=== PATIENT | female | born 1940 | race African-American/Black ===

== ENCOUNTER 2022-02-25 12:35 | Emergency (ER) | payer OTHER ==
[2022-02-25 13:43] LABS: Absolute Lymphocytes (CBC) 1.1 K/uL (0.7-4.9); Hematocrit 37.7 % (36.0-45.0); MCV 89.4 fL (80-100); MPV 7.3 fL (7.6-11.3); RBC Red Blood Cell Count 4.21 M/uL (3.86-4.86)
[2022-02-25 13:52] LABS: Protime INR 1.07
[2022-02-25 14:04] LABS: Albumin 3.4 g/dL (3.4-5.0); Bilirubin Direct 0.2 mg/dL (0-0.2); Bilirubin Total 0.5 mg/dL (0.2-1.0); Potassium 3.9 mmol/L (3.5-5.1); Protein, Total 7.8 g/dL (6.4-8.2); Troponin High Sensitivity 10.3 pg/mL (<58.9)
--- NOTE | 2022-02-25 14:14 | RAD REPORT ---
EXAM DESCRIPTION: CT - Head Brain Wo Cont - 02/25/2022 2:03 pm CLINICAL HISTORY: Generalized weakness COMPARISON: <Comparisons> TECHNIQUE: Axial 5 mm thick images of the head were obtained without IV contrast. All CT scans are performed using dose optimization technique as appropriate and may include automated exposure control or mA/KV adjustment according to patient size. FINDINGS: No intracranial hemorrhage, mass, edema or shift of mid-line structures. No acute infarcti on changes seen. No cortical edema or sulcal effacement. Atrophy changes are minimal. Ventricles are in proportion volume loss. Moderate chronic ischemic changes seen throughout the cerebral white matte r and to a lesser degree basal ganglia thalami. Brainstem chronic ischemic change suspected as well. Mastoid air cells and visualized portions of the paranasal sinuses are clear. No acute bony findings. IMPRESSION: No intracranial hemorrhage and no acute cortical level infarction is identifiable. Patient has moderate severity chronic ischemic change in the cerebral white matter, thalamus, brainst em and basal ganglia. Chronic ischemic changes can mask nonhemorrhagic acute infarction. MR brain followup can be obtained if there is ongoing concern for acute ischemia.
[2022-02-25] MEDS ORDERED: NA CHLORIDE 0.9% 500 ML ONE (15:09)
[2022-02-25] MEDS ORDERED: HYDROCODONE/CHLORPHEN 5 ML/OSYR ONE (15:09)
[2022-02-25 15:18] LABS: Urine Blood Negative (Negative); Urine Glucose Negative (Negative); Urine Protein Trace (Negative); Urine Specific Gravity 1.025 (1.005-1.030); Urine pH 6.5 (5.0-7.0)
--- NOTE | 2022-02-25 15:22 | RAD REPORT ---
EXAM DESCRIPTION: RAD - Chest Single View - 02/25/2022 2:42 pm CLINICAL HISTORY: cough, shortness of breath COMPARISON: None TECHNIQUE: AP portable chest image was obtained 02/25/2022 2:42 pm . FINDINGS: Lung volumes are relatively low. Interstitial markings are prominent. There are patchy rosalio eolar opacities in the mid and lower lung winter. Cardiac silhouette is enlarged. Vasculature is prom inent in part due to low lung volumes. No measurable pleural effusion and no pneumothorax. No acute b aidan abnormality seen. Aorta is tortuous. IMPRESSION: Mild CHF/volume overload pattern
[2022-02-25 15:32] LABS: Urine Bacteria <20 /HPF (<20); Urine RBC <5 /HPF (NONE SEEN)
--- NOTE | 2022-02-25 17:10 | EDPHYS ---
Physician Documentation [facility] Name: Amber Redmond Age: 82 yrs Sex: Female : 1940 Arrival Date: 02/25/2022 Time: 12:39 Bed 13 Private MD: ED Physician Clive Turner HPI: 02/25 13:22 This 82 yrs old Black Female presents to ER via Wheelchair with complaints of Weakness. pm1 13:22 The patient presents to the emergency department with weakness of the entire body, pm1 generalized weakness, body aches and cough. Onset: The symptoms/episode began/occurred 2 day(s) ago. Context: occurred at home. Associated signs and symptoms: Pertinent positives: cough, chills, shortness of breath, Pertinent negatives: fever, headache, chest pain, nausea, vomiting, diarrhea. Severity of symptoms: in the emergency department the symptoms are unchanged Pain is currently a 0 / 10. Patient's baseline: Neuro: alert and fully oriented, Motor: no deficits, Ambulation: walks without assistance, Speech: normal. The patient has not recently seen a physician. Historical: - Allergies: 12:51 PENICILLINS; ph - Home Meds: 12:51 labetalol 200 mg Oral tab [Active]; clonidine HCl 0.2 mg Oral tab [Active]; ph atorvastatin 40 mg oral tab 1 tab once daily [Active]; amlodipine oral [Active]; hydrochlorothiazide 25 mg Oral tab [Active]; - PMHx: 12:53 Hypercholesterolemia; Hypertensive disorder; ph - PSHx: 12:53 None; ph - Immunization history:: Adult Immunizations up to date. - Social history:: Smoking status: Patient reports the use of cigarette tobacco products, denies chronic smoking, but will smoke occasionally. ROS: 13:22 ENT: Negative for injury, pain, and discharge, Neck: Negative for injury, pain, and pm1 swelling, Cardiovascular: Negative for chest pain, palpitations, and edema. 13:22 Abdomen/GI: Negative for abdominal pain, nausea, vomiting, diarrhea, and constipation, Back: Negative for injury and pain, : Negative for injury, bleeding, discharge, and swelling, MS/Extremity: Negative for injury and deformity, Skin: Negative for injury, rash, and discoloration. 13:22 Constitutional: Positive for body aches, chills, decreased appetite, Negative for fever. 13:22 Respiratory: Positive for cough, shortness of breath, yellowish sputum. 13:22 Neuro: Positive for generalized weakness. 13:22 All other systems are negative. Exam: 13:22 Constitutional: This is a well developed, well nourished patient who is awake, alert, pm1 and in no acute distress. Head/Face: Normocephalic, atraumatic. 13:22 Back: No spinal tenderness. No costovertebral tenderness. Full range of motion. Skin: Warm, dry with normal turgor. Normal color with no rashes, no lesions, and no evidence of cellulitis. MS/ Extremity: Pulses equal, no cyanosis. Neurovascular intact. Full, normal range of motion. 13:22 Eyes: Exam is negative for acute changes, Periorbital structures: appear normal, Pupils: no acute changes, Extraocular movements: no acute changes, Conjunctiva: no acute changes, no injection. 13:22 ENT: Exam is negative for acute changes, Mouth: no acute changes, Lips: normal, moist, Oral mucosa: normal, pink and intact, moist. 13:22 Cardiovascular: Exam negative for acute changes, Rate: normal, Rhythm: regular, Pulses: no pulse deficits are appreciated. 13:22 Respiratory: Exam negative for acute changes, respiratory distress, shortness of breath, Breath sounds: are clear throughout. 13:22 Abdomen/GI: Exam negative for acute changes, Inspection: abdomen appears normal, Palpation: abdomen is soft and non-tender, in all quadrants. 13:22 Neuro: Exam negative for acute changes, Orientation: is normal, Mentation: is normal, Motor: is normal, moves all fours. Vital Signs: 12:49 BP 184 / 93; Pulse 75; Resp 18; Temp 97.7; Pulse Ox 99% on R/A; Weight 83.91 kg; Height ph 5 ft. 2 in. (157.48 cm); Pain 0/10; 13:38 BP 159 / 85; Pulse 76; Resp 17; Pulse Ox 99% on R/A; ll1 15:45 BP 152 / 87; Pulse 71; Resp 16; Pulse Ox 100% on R/A; ll1 17:04 BP 166 / 64; Pulse 65; Resp 17; Pulse Ox 97% on R/A; ll1 12:49 Body Mass Index 33.84 (83.91 kg, 157.48 cm) ph MDM: 12:44 Patient medically screened. en 13:26 Data reviewed: vital signs. Data interpreted: Pulse oximetry: on room air is 99 %. pm1 Interpretation: normal. 14:34 Refusal of service: The patient/guardian displays adequate decision making capability pm1 and despite a detailed discussion of alternatives, benefits, risks, and consequences refuses: MRI brain. Discussed CT findings with patient and her family member and they do not want to get a MRI of her brain. They came to the ER with concerns for flu COVID or pneumonia and they do not believe that she has any stroke-like symptoms or complaints. Since they refused I performed a detailed neurological exam on the patient and I did not find any abnormal findings. 17:09 Counseling: I had a detailed discussion with the patient and/or guardian regarding: the pm1 historical points, exam findings, and any diagnostic results supporting the discharge/admit diagnosis, lab results, radiology results, the need for outpatient follow up, to return to the emergency department if symptoms worsen or persist or if there are any questions or concerns that arise at home. 02/25 13:20 Order name: Basic Metabolic Panel; Complete Time: 14:05 pm02/25 13:20 Order name: CBC with Diff; Complete Time: 13:52 pm02/25 13:20 Order name: LFT's; Complete Time: 14:05 pm02/25 13:20 Order name: Magnesium; Complete Time: 14:05 pm02/25 13:20 Order name: NT PRO-BNP; Complete Time: 14:05 pm02/25 13:20 Order name: PT-INR; Complete Time: 14:03 pm02/25 13:20 Order name: Troponin HS; Complete Time: 14:05 pm02/25 13:20 Order name: XRAY Chest (1 view); Complete Time: 15:35 pm1 02/25 13:20 Order name: COVID-19 SARS RT PCR (Document "Date of Onset" if Symptomatic); Complete pm1 Time: 15:35 02/25 13:20 Order name: Flu; Complete Time: 15:35 pm1 02/25 13:20 Order name: Urine Microscopic Only; Complete Time: 15:35 pm1 02/25 13:20 Order name: CT Head Brain wo Cont; Complete Time: 14:20 pm1 02/25 15:18 Order name: Urine Dipstick-Ancillary; Complete Time: 15:35 EDMS 02/25 15:35 Order name: Urine Culture EDIA 02/25 13:20 Order name: EKG; Complete Time: 13:21 pm1 02/25 13:20 Order name: Cardiac monitoring; Complete Time: 13:49 pm1 02/25 13:20 Order name: EKG - Nurse/Tech; Complete Time: 13:49 pm1 02/25 13:20 Order name: IV Saline Lock; Complete Time: 13:22 pm1 02/25 13:20 Order name: Labs collected and sent; Complete Time: 13:22 pm1 02/25 13:20 Order name: O2 Per Protocol; Complete Time: 13:21 pm1 02/25 13:20 Order name: O2 Sat Monitoring; Complete Time: 13:21 pm1 02/25 13:20 Order name: Urine Dipstick-Ancillary (obtain specimen); Complete Time: 15:26 pm1 Administered Medications: 15:09 Drug: Tussionex Pennkinetic ER (chlorpheniramine-hydrocodone) Suspension 5 ml Route: PO;ll1 17:11 Follow up: Response: No adverse reaction; RASS: Alert and Calm (0) ll1 15:09 Drug: NS 0.9% 500 ml Route: IV; Rate: bolus; Site: left antecubital; ll1 17:11 Follow up: Response: No adverse reaction; IV Status: Completed infusion; IV Intake: ll1 500ml Disposition: 18:39 Co-signature as Attending Physician, Clive Turner MD I agree with the assessment and kdr plan of care. Disposition Summary: 02/25/22 17:09 Discharge Ordered Location: Home pm1 Problem: new pm1 Symptoms: have improved pm1 Condition: Stable pm1 Diagnosis - Coronavirus infection, unspecified pm1 Followup: pm1 - With: Emergency Department - When: As needed - Reason: Worsening of condition Followup: pm1 - With: Private Physician - When: 2 - 3 days - Reason: Recheck today's complaints, Continuance of care, Re-evaluation by your physician Discharge Instructions: - Discharge Summary Sheet pm1 - COVID-19 pm1 - COVID-19 Frequently Asked Questions pm1 - 10 Things You Can Do to Manage Your COVID-19 Symptoms at Home - [facility] pm1 - COVID-19: Quarantine vs. Isolation - [facility] pm1 Forms: - Medication Reconciliation Form pm1 - Thank You Letter pm1 - Antibiotic Education pm1 - Prescription Opioid Use pm1 Prescriptions: - Zithromax Z-Jaguar 250 mg Oral Tablet - take 1 tablet by ORAL route as directed for 5 days Day 1 - take two (2) tablets pm1 one time. Day 2, 3, 4 , 5 take one (1) tablet once daily.; 6 tablet; Refills: 0, Product Selection Permitted - Guaifenesin AC 10-100 mg/5 mL Oral Liquid - take 10 milliliters by ORAL route every 4 hours As needed; 240 milliliter; pm1 Refills: 0, Product Selection Permitted Signatures: Dispatcher [employer] EDClive Avalos MD MD kdr Hall, Patricia, RN RN Erik Nelson NP COMMERCIAL [employer] SERVICE TECHNICIAN pm1 Danilo Carlin RN RN 1 Gianna Day PA PA en
--- NOTE | 2022-02-25 17:10 | ER ---
Nurse's Notes [facility] Name: Amber Redmond Age: 82 yrs Sex: Female : 1940 Arrival Date: 02/25/2022 Time: 12:39 Bed 13 Private MD: Diagnosis: Coronavirus infection, unspecified Presentation: 02/25 12:49 Chief complaint: Patient states: Generalized weakness and fatigue for approx 1 week, ph denies pain, N/V/D, or any other symptoms, states, " I just don't feel good.". Coronavirus screen: Vaccine status: Patient reports receiving the 2nd dose of the covid vaccine. Ebola Screen: No symptoms or risks identified at this time. No acute neurological deficit is noted. Pre-hospital glucose is not applicable to this patient. Initial Sepsis Screen: Does the patient meet any 2 criteria? No. Patient's initial sepsis screen is negative. Does the patient have a suspected source of infection? No. Patient's initial sepsis screen is negative. Risk Assessment: Do you want to hurt yourself or someone else? Patient reports no desire to harm self or others. Onset of symptoms was February 25, 2022. 12:49 Method Of Arrival: Wheelchair ph 12:49 Acuity: BRIANA 3 ph Triage Assessment: 12:53 General: Appears in no apparent distress. Behavior is calm, cooperative, appropriate ph for age, Reports fatigue for >3 days, Denies fever. Pain: Denies pain. Neuro: Level of Consciousness is awake, alert, obeys commands, Oriented to person, place, time, situation. Stroke Activation: Symptom onset > 6 hours Physician: Stroke Attending; Name: ; Notified At: ; Arrived At: Physician: Chief Stroke Resident; Name: ; Notified At: ; Arrived At: Physician: Stroke Resident; Name: ; Notified At: ; Arrived At: Physician: ED Attending; Name: ; Notified At: ; Arrived At: Physician: ED Resident; Name: ; Notified At: ; Arrived At: Historical: - Allergies: 12:51 PENICILLINS; ph - Home Meds: 12:51 labetalol 200 mg Oral tab [Active]; clonidine HCl 0.2 mg Oral tab [Active]; ph atorvastatin 40 mg oral tab 1 tab once daily [Active]; amlodipine oral [Active]; hydrochlorothiazide 25 mg Oral tab [Active]; - PMHx: 12:53 Hypercholesterolemia; Hypertensive disorder; ph - PSHx: 12:53 None; ph - Immunization history:: Adult Immunizations up to date. - Social history:: Smoking status: Patient reports the use of cigarette tobacco products, denies chronic smoking, but will smoke occasionally. Screenin:15 Abuse screen: Denies threats or abuse. Nutritional screening: No deficits noted. ll1 Tuberculosis screening: No symptoms or risk factors identified. Fall Risk IV access (20 points). Gait- Weak (10 pts.). Total Brown Fall Scale indicates Low Risk Score (25-44 pts). Fall prevention measures have been instituted. Side Rails Up X 2 Placed close to Nursing Station Frequent Obs/Assesments occuring Family Present and informed to notify staff if they need to leave bedside As available Patient and Family Educated on Fall Prevention Program and strategies. Assessment: 13:15 Reassessment: No changes from previously documented assessment. Patient and/or family ll1 updated on plan of care and expected duration. Pain level reassessed. Patient is alert, oriented x 3, equal unlabored respirations, skin warm/dry/pink. 14:15 Reassessment: No changes from previously documented assessment. Patient and/or family ll1 updated on plan of care and expected duration. Pain level reassessed. Patient is alert, oriented x 3, equal unlabored respirations, skin warm/dry/pink. 15:15 Reassessment: No changes from previously documented assessment. Patient and/or family ll1 updated on plan of care and expected duration. Pain level reassessed. Patient is alert, oriented x 3, equal unlabored respirations, skin warm/dry/pink. 16:15 Reassessment: No changes from previously documented assessment. Patient and/or family ll1 updated on plan of care and expected duration. Pain level reassessed. Patient is alert, oriented x 3, equal unlabored respirations, skin warm/dry/pink. 17:15 Reassessment: No changes from previously documented assessment. Patient and/or family ll1 updated on plan of care and expected duration. Pain level reassessed. Patient is alert, oriented x 3, equal unlabored respirations, skin warm/dry/pink. Vital Signs: 12:49 BP 184 / 93; Pulse 75; Resp 18; Temp 97.7; Pulse Ox 99% on R/A; Weight 83.91 kg; Height ph 5 ft. 2 in. (157.48 cm); Pain 0/10; 13:38 BP 159 / 85; Pulse 76; Resp 17; Pulse Ox 99% on R/A; ll1 15:45 BP 152 / 87; Pulse 71; Resp 16; Pulse Ox 100% on R/A; ll1 17:04 BP 166 / 64; Pulse 65; Resp 17; Pulse Ox 97% on R/A; ll1 12:49 Body Mass Index 33.84 (83.91 kg, 157.48 cm) ph ED Course: 12:39 Patient arrived in ED. rg4 12:41 Danilo Carlin, SHALOM is Primary Nurse. ll1 12:41 Arm band placed on Patient placed in an exam room, on a stretcher. ll1 12:44 Gianna Day PA is PHCP. en 12:44 Clive Turner MD is Attending Physician. en 12:51 Triage completed. ph 13:04 PHCP role handed off by Gianna Day PA pm1 13:04 Erik Henry NP is PHCP. pm1 13:15 Patient has correct armband on for positive identification. Bed in low position. Call ll1 light in reach. Side rails up X 1. 13:58 Inserted saline lock: 22 gauge. kr3 14:05 CT Head Brain wo Cont In Process Unspecified. EDMS 14:44 XRAY Chest (1 view) In Process Unspecified. EDMS 17:52 No provider procedures requiring assistance completed. IV discontinued, intact, ll1 bleeding controlled, No redness/swelling at site. Pressure dressing applied. Administered Medications: 15:09 Drug: Tussionex Pennkinetic ER (chlorpheniramine-hydrocodone) Suspension 5 ml Route: PO;ll1 17:11 Follow up: Response: No adverse reaction; RASS: Alert and Calm (0) ll1 15:09 Drug: NS 0.9% 500 ml Route: IV; Rate: bolus; Site: left antecubital; ll1 17:11 Follow up: Response: No adverse reaction; IV Status: Completed infusion; IV Intake: ll1 500ml Medication: 13:16 VIS not applicable for this client. ll1 Intake: 17:11 IV: 500ml; Total: 500ml. ll1 Outcome: 17:09 Discharge ordered by . pm1 17:52 Patient left the ED. ll1 17:52 Discharged to home via wheelchair. ll1 17:52 Condition: stable 17:52 Discharge instructions given to patient, Instructed on discharge instructions, follow up and referral plans. medication usage, Demonstrated understanding of instructions, follow-up care, medications, Prescriptions given X 2. Signatures: Dispatcher [employer] EDMS Jeimy Bagley, RN RN ph Erik Henry, RONA INVERTEBRATE PALEONTOLOGIST pm1 Nereida Zepeda rg4 Danilo Carlin RN RN ll1 Gianna Day PA PA en Reid, Kelley RN RN kr3 Corrections: (The following items were deleted from the chart) 18:37 18:34 Discharged to home via wheelchair, kr3 ll1 18:38 18:33 IV discontinued, intact, bleeding controlled, No redness/swelling at site. ll1 Pressure dressing applied, kr3 18:38 18:33 No provider procedures requiring assistance completed. kr3 ll1 18:38 18:34 Condition: stable kr3 ll1 18:38 18:34 Discharge instructions given to patient, Instructed on discharge instructions, ll1 follow up and referral plans. medication usage, Demonstrated understanding of instructions, follow-up care, medications, Prescriptions given X 2, kr3 18:38 18:34 Discharged to home via wheelchair, ll1 ll1
[2022-02-25 18:00] VITALS: TEMP 97.7
[2022-02-25 18:07] VITALS: BP 166/64; O2SAT 97
--- NOTE | 2022-02-27 08:00 | EKG ---
Test Date: 2022-02-25 Test Time: 13:48:14 [employer]: SHIV MEASUREMENT RESULTS: Intervals: Rate: 75 VT: 200 QRSD: 84 QT: 426 QTc: 475 [place]: P: 58 VT: 200 QRS: 0 T: 15 INTERPRETIVE STATEMENTS: Sinus rhythm with premature atrial complexes Possible Left atrial enlargement Anteroseptal infarct, age undetermined Abnormal ECG Compared to ECG 04/08/2007 08:45:55 Atrial premature complex(es) now present First degree AV block no longer present Prolonged QT interval no longer present Myocardial infarct finding still present Electronically Signed On 02-27-22 07:55:49 CDT by Dustin Bernard
--- NOTE | 2022-02-27 12:48 | EKG ---
Test Date: 2022-02-25 Test Time: 13:50:29 Pta: SHIV MEASUREMENT RESULTS: Intervals: Rate: 75 CA: 206 QRSD: 80 QT: 424 QTc: 473 [place]: P: 65 CA: 206 QRS: -1 T: 7 INTERPRETIVE STATEMENTS: Sinus rhythm with premature supraventricular complexes Possible Left atrial enlargement Anteroseptal infarct, age undetermined Abnormal ECG Compared to ECG 02/25/2022 13:48:14 No significant changes Electronically Signed On 02-27-22 12:47:26 CDT by Tavo Mcfarlane
== END 2022-02-25 17:52 | disposition home or self-care (01) ==
LOC: ER 12:35
DX: U07.1 COVID-19 (principal); I10 Essential (primary) hypertension; Z72.0 Tobacco use; Z88.0 Allergy status to penicillin
CPT/HCPCS: 96361; 93005 ×2; 87088; 85025; 87086; 80048; 36415; 83735; 85610; 80076; 84484; 83880; 87804 ×2; 70450; 71045; 96360; 99284; U0003; J7040; 81003; 81015

== ENCOUNTER 2024-08-19 16:25 | Emergency (ER) | payer OTHER ==
[2024-08-19 17:30] LABS: SARS-CoV-2 Antigen CONTROL BLUE LINE VIS/BG OK; SARS-CoV-2 Antigen Rapid Res Negative (Negative)
[2024-08-19 17:46] LABS: PT Prothrombin Time 11.4 SECONDS (9.4-12.5); PTT, Activated Partial Thromb 24.1 SECONDS (24.3-36.9); Protime INR 1.02
[2024-08-19] MEDS ORDERED: IPRATROPIUM BROM 0.5MG/2.5ML ONE (17:48)
[2024-08-19] MEDS ORDERED: ALBUTEROL 2.5 MG/3 ML NEB SOL ONE (17:48)
[2024-08-19] MEDS ORDERED: ACETAMINOPHEN 500 MG TAB ONE (17:49)
[2024-08-19 17:58] LABS: Albumin 3.5 g/dL (3.4-5.0); Albumin/Globulin Ratio 0.9 (1.1-1.8); Anion Gap 7.8 mEq/L (5.0-15.0); Bilirubin Total 0.3 mg/dL (0.2-1.0); Potassium 3.8 mEq/L (3.5-5.1); Protein, Total 7.5 g/dL (6.4-8.2)
[2024-08-19 18:11] LABS: Absolute Basophils 0.1 K/uL (0-0.5); Absolute Eosinophils 0.1 K/uL (0-0.5); Absolute Lymphocytes (CBC) 0.4 K/uL (0.7-4.9); Absolute Monocytes 0.6 K/uL (0.1-1.3); Absolute Neutrophil 6.6 K/uL (1.8-8.0); Basophils % 0.9 % (0-1.3); Eosinophils % 1.2 % (0-4.4); Hematocrit 35.7 % (36.0-45.0); Hemoglobin 11.9 g/dL (12.0-15.0); Lymphocytes % 5.1 % (15.3-44.8); MCH 30.8 pg (27.0-35.0); MCHC 33.3 g/dL (32.0-36.0); MCV 92.4 fL (80-100); MPV 7.5 fL (7.6-11.3); Monocytes % 7.2 % (3.3-12.3); Neutrophils % 85.6 % (41.7-73.7); Nucleated Red Blood Cells % 0.1 % (0-0); Platelets 301 thou/uL (152-406); RBC Red Blood Cell Count 3.86 M/uL (3.86-4.86); Red Cell Distribution Width 15.5 % (12.1-15.2)
--- NOTE | 2024-08-19 18:22 | RAD REPORT ---
EXAMINATION: ONE VIEW CHEST XR CLINICAL INDICATION: Female, 84 years old.,Cough;Fever TECHNIQUE: Frontal chest projection is submitted. Examination is limited by patient positioning and t echnique. COMPARISON: 02/25/2022 FINDINGS: The lungs are well inflated and clear of focal opacities. No pneumothorax or sizable effusion. The h eart is upper limit of normal in size. Engorgement of the central vasculature and mild central interstitial prominence, stable to mildly progressive since the prior exam. Tortuosity of the thoraci c aorta again seen. IMPRESSION: Findings suggesting mild CHF.
[2024-08-19] MEDS ORDERED: OSELTAMIVIR 75 MG CAP PO ONE (18:43)
[2024-08-19] MEDS ORDERED: IBUPROFEN 400 MG TAB ONE (19:30)
[2024-08-19 19:36] LABS: Specific Gravity 1.021 (1.005-1.030); Sqamous Epithelial <5 /HPF (None Seen); Urine Bacteria None Seen /HPF (<20); Urine Bilirubin NEGATIVE (Negative); Urine Blood 1+ (Negative); Urine Clarity Clear (Clear); Urine Color Light-Yellow (Yellow); Urine Crystals Unidentified Few /HPF (None Seen); Urine Culture Reflex Order REFLEXED; Urine Glucose NEGATIVE (Negative); Urine Ketones NEGATIVE (Negative); Urine Microscopic Reflex YN ORDER UMIC; Urine Mucus Slight /HPF (None Seen); Urine Nitrite NEGATIVE (Negative); Urine Protein TRACE (Negative); Urine RBC <5 /HPF (None Seen); Urine Urobilinogen Normal (Normal); Urine Yeast (Budding) Trace /HPF (None Seen); Urine pH 5.5 (5.0-7.0)
--- NOTE | 2024-08-19 19:51 | EDPHYS ---
Physician Documentation [facility] Name: Amber Redmond Age: 84 yrs Sex: Female : 1940 Arrival Date: 08/19/2024 Time: 16:25 Bed 8 Private MD: Ashwini Mg ED Physician Fredi English HPI: 08/19 16:55 This 84 yrs old Black Female presents to ER via Wheelchair with complaints of Sore cp Throat, Cough, Weakness. 16:55 The patient presents with sore throat. cp 16:55 Onset: The symptoms/episode began/occurred 2 day(s) ago. cp 16:55 The patient reports fever, with an emergency department temperature of 101.2 degrees cp Fahrenheit. Associated signs and symptoms: Pertinent positives: cough, fever, flu-like symptoms, Sore throat weakness, Pertinent negatives chest pain, diarrhea, dysphagia, vomiting. Historical: - Allergies: 16:40 PENICILLINS; iw - PMHx: 16:40 Hypertensive disorder; Hypercholesterolemia; iw - PSHx: 16:40 None; iw - Immunization history:: Adult Immunizations not up to date. - Infectious Disease History:: Denies. - Social history:: Smoking status: Patient reports the use of cigarette tobacco products, denies chronic smoking, but will smoke occasionally. ROS: 17:00 Constitutional: Positive for body aches, fever, Negative for poor PO intake, cp 17:00 Eyes: Negative for injury, pain, redness, and discharge, cp 17:00 ENT: Positive for sore throat, Negative for drainage from ear(s), ear pain, difficulty swallowing, difficulty handling secretions, 17:00 Neck: Negative for pain with movement, pain at rest, stiffness, 17:00 Cardiovascular: Negative for chest pain, 17:00 Respiratory: Positive for cough, "sounds productive", shortness of breath, 17:00 Abdomen/GI: Negative for vomiting, diarrhea, constipation, 17:00 Neuro: Positive for weakness, Negative for altered mental status, dizziness, headache, 17:00 All other systems are negative, Exam: 17:05 Constitutional: The patient appears in no acute distress, alert, awake, cp non-diaphoretic, non-toxic, well developed, well nourished, 17:05 Head/Face: Normocephalic, atraumatic. cp 17:05 Eyes: Periorbital structures: appear normal, Conjunctiva: normal, Sclera: no appreciated abnormality, Lids and lashes: appear normal, bilaterally, 17:05 ENT: External ear(s): are unremarkable, Ear canal(s): are normal, clear, TM's: dullness, bilaterally, Nose: is normal, Mouth: Lips: moist, Oral mucosa: moist, Posterior pharynx: Airway: no evidence of obstruction, patent, Tonsils: no enlargement, no exudate, erythema, that is mild, exudate, is not appreciated, Voice: is normal, 17:05 Neck: ROM/movement: Meningeal signs: are not present, 17:05 Chest/axilla: Inspection: normal, 17:05 Cardiovascular: Rate: normal, Rhythm: regular, Edema: is not appreciated, JVD: is not appreciated, 17:05 Respiratory: the patient does not display signs of respiratory distress, Respirations: intercostal retractions, are absent, Breath sounds: decreased breath sounds, are not appreciated, stridor, is not appreciated, + upper airway congestion. 17:05 Abdomen/GI: Inspection: abdomen appears normal, Palpation: abdomen is soft and non-tender, in all quadrants, 17:05 Skin: no rash present. 17:05 Neuro: Orientation: to person, place \\T\\ time. Mentation: is normal, Motor: moves all fours, strength is normal, 17:39 ECG was reviewed by the Attending Physician. cp Vital Signs: 16:38 BP 125 / 84; Pulse 92; Resp 19; Temp 101.2; Pulse Ox 94% ; iw 18:28 BP 121 / 61; Pulse 90; Resp 24; Temp 101.4(O); Pulse Ox 97% on R/A; jb4 18:52 BP 115 / 62; Pulse 88; Resp 22; Temp 100.6(O); Pulse Ox 95% on R/A; jb4 19:34 BP 108 / 68; Pulse 89; Resp 16; Pulse Ox 96% ; jj7 20:41 BP 121 / 64; Pulse 86; Resp 17; Temp 98.3; Pulse Ox 96% ; Pain 0/10; jj7 20:41 Pain Scale: Adult jj7 MDM: 16:40 Medical Screening Exam initiated cp 19:50 Data reviewed: vital signs, nurses notes, lab test result(s), EKG, radiologic studies, cp plain films, and as a result, I will discharge patient. 19:50 Differential diagnosis: viral Infection, bacterial infection, pneumonia group A strep cp tonsillitis, influenza, tonsillitis. I considered the following discharge prescriptions or medication management in the emergency department Medications were administered in the Emergency Department. See MAR. Care significantly affected by the following chronic conditions: Hypertension. Counseling: I had a detailed discussion with the patient and/or guardian regarding the historical points, exam findings, and any diagnostic results supporting the discharge/admit diagnosis, lab results, radiology results, to return to the emergency department if symptoms worsen or persist or if there are any questions or concerns that arise at home. Response to treatment: the patient's symptoms have mildly improved after treatment, and as a result, I will discharge patient. 08/19 16:51 Order name: Blood Culture Adult (2) 08/19 16:51 Order name: CBC with Diff 08/19 18:20 Interpretation: Normal except: HGB 11.9; HCT 35.7; RDW 15.5; MPV 7.5; ANDRZEJ% 85.6; LYM% cp 5.1; LYMA 0.4. 08/19 16:51 Order name: CMP; Complete Time: 18:10 08/19 18:11 Interpretation: Normal except: GLUC 130; BUN 20; CRE 1.05; GFR 52; GLOB 4.0; A/G 0.9. 08/19 16:51 Order name: Lactate w/ 2H reflex if indic.; Complete Time: 18:10 08/19 18:11 Interpretation: Reviewed. 08/19 16:51 Order name: Protime (+inr); Complete Time: 18:10 08/19 16:51 Order name: Ptt, Activated; Complete Time: 18:10 08/19 18:20 Interpretation: Reviewed. 08/19 16:51 Order name: Influenza Screen (a \\T\\ B); Complete Time: 17:37 08/19 17:38 Interpretation: Abnormal: FLUA FLU A ----- POSITIVE for FLU A protein antigen. 08/19 16:51 Order name: SARS RAPID; Complete Time: 17:37 08/19 17:38 Interpretation: Reviewed. 08/19 16:51 Order name: Strep 08/19 17:38 Interpretation: Reviewed. 08/19 16:51 Order name: RSV; Complete Time: 17:37 08/19 17:38 Interpretation: Reviewed. 08/19 17:33 Order name: Throat Culture [facility] 08/19 17:58 Order name: Urinalysis w/ reflexes; Complete Time: 19:48 08/19 19:49 Interpretation: Reviewed. 08/19 19:39 Order name: Urine Culture [facility] 08/19 20:15 Order name: CBC Smear Scan [facility] 08/19 16:51 Order name: XRAY Chest (1 view); Complete Time: 18:30 08/19 16:51 Order name: EKG; Complete Time: 16:52 08/19 16:51 Order name: Cardiac monitoring; Complete Time: 17:44 08/19 16:51 Order name: EKG - Nurse/Tech; Complete Time: 17:44 08/19 16:51 Order name: IV Saline Lock - Large Bore; Complete Time: 17:44 08/19 16:51 Order name: Labs collected and sent; Complete Time: 17:44 08/19 16:51 Order name: O2 Per Protocol; Complete Time: 17:44 08/19 16:51 Order name: O2 Sat Monitoring; Complete Time: 17:44 08/19 16:51 Order name: Vital Signs; Complete Time: 17:44 08/19 17:46 Order name: Misc. Order: recollect - lavender; Complete Time: 18:09 08/19 18:31 Order name: PO challenge; Complete Time: 18:41 cp EC:39 Rate is 87 beats/min. Rhythm is regular. OK interval is prolonged at 200 msec. QRS cp interval is normal. QT interval is normal. T waves are Inverted in leads III, aVR. Interpreted by me. Reviewed by me. Administered Medications: 17:54 Drug: Acetaminophen PO 1000 mg PO once Route: PO; jb4 18:52 Follow up: Response: No adverse reaction; Marked relief of symptoms; Temperature is jb4 decreased 17:54 Drug: DuoNeb Nebulize (2.5 mg - 0.5 mg) 3 ml Nebulizer once Route: Nebulizer; jb4 18:51 Follow up: Response: No adverse reaction; Marked relief of symptoms; Wheezing diminishedjb4 18:45 Drug: Oseltamivir PO 75 mg PO once Route: PO; jb4 20:41 Follow up: Response: Marked relief of symptoms jj7 19:34 Drug: Ibuprofen PO 800 mg PO once Route: PO; jj7 20:41 Follow up: Response: Marked relief of symptoms jj7 20:35 Drug: Rocephin IV 1 grams IV at calculated rate once; Given slow IV push per pharmacy jj7 instructions Route: IV; Rate: calculated rate; Site: left antecubital; 20:44 Follow up: IV Status: Completed infusion jj7 Disposition Summary: 08/19/24 19:51 Discharge Ordered Notes: Location: Home cp Problem: new cp Symptoms: have improved cp Condition: Stable cp Diagnosis - Influenza due to identified novel influenza A virus with other respiratory cp manifestations - UTI/ Urinary tract infection, site not specified cp Followup: cp - With: Private Physician - When: 2 - 3 days - Reason: Worsening of condition Discharge Instructions: - Discharge Summary Sheet cp - Influenza, Adult cp - Urinary Tract Infection, Adult cp Forms: - Medication Reconciliation Form cp - Antibiotic Education cp - Prescription Opioid Use cp - Patient Portal Instructions cp - Leadership Thank You Letter cp Prescriptions: - Bromfed DM 2-30-10 mg/5 mL Oral syrup - administer 7.5 milliliter ORAL route every 6-8 hours as needed for cold cp symptoms; 240 milliliter; Refills: 0, Product Selection Permitted - Ibuprofen 800 mg Oral Tablet - take 1 tablet ORAL route every 8 hours As needed take with food; 30 tablet; cp Refills: 0, Product Selection Permitted - Tamiflu 75 mg Oral Capsule - take 1 capsule ORAL route every 12 hours for 5 days; 10 capsule; Refills: 0, cp Product Selection Permitted - cefpodoxime 200 mg Oral tablet - take 1 tablet ORAL route every 12 hours for 7 days with food; 14 tablet; cp Refills: 0, Product Selection Permitted Addendum: 08/22/2024 21:40 I was immediately available for consultation during this patient's visit. I did not e c2 personally see the patient or discuss the patient with the RUDOLPH. . Signatures: Dispatcher [employer] Kaykay Childs RN RN iw Page, Corey, PA PA cp Ruy Ren RN RN jb4 Apollo Hassan RN RN jj7 Fredi English MD MD ec2 Ronnell Valente ty Corrections: (The following items were deleted from the chart) 08/19 16:52 16:52 BLOOD CULTURE*+BA.LAB.BRZ ordered. EDMS EDMS 16:52 16:52 CBC+H.LAB.BRZ ordered. EDMS EDMS 16:52 16:52 COMPREHENSIVE METABOLIC PANEL+C.LAB.BRZ ordered. EDMS EDMS 16:52 16:52 LACTATE+C.LAB.BRZ ordered. EDMS EDMS 16:52 16:52 PROTIME (+INR)+COAG.LAB.BRZ ordered. EDMS EDMS 16:52 16:52 PTT, ACTIVATED+COAG.LAB.BRZ ordered. EDMS EDMS 16:52 16:52 Influenza Screen (A \\T\\ B)+BA.LAB.BRZ ordered. EDMS EDMS 16:52 16:52 SARS-COV-2 Antigen Rapid+I.LAB.BRZ ordered. EDMS EDMS 16:52 16:52 Group A Streptococcus Rapid Sc+BA.LAB.BRZ ordered. EDMS EDMS 16:52 16:52 Respiratory Syncytial Virus Ag+BA.LAB.BRZ ordered. EDMS EDMS 17:58 17:58 Urinalysis+U.LAB.BRZ ordered. EDMS EDMS 18:11 16:51 Accucheck ordered. cp jb4
--- NOTE | 2024-08-19 19:51 | ER ---
Nurse's Notes [facility] Name: Amber Redmond Age: 84 yrs Sex: Female : 1940 Arrival Date: 08/19/2024 Time: 16:25 Bed 8 Private MD: Ashwini Mg Diagnosis: Influenza due to identified novel influenza A virus with other respiratory manifestations;UTI/ Urinary tract infection, site not specified Presentation: 08/19 16:38 Chief complaint: Patient states: sore throat, cough, fever, fatigue , nose runny , iw started Saturday night. Coronavirus screen: Client presents with at least one sign or symptom that may indicate coronavirus-19. Ebola Screen: No symptoms or risks identified at this time. Initial Sepsis Screen: Does the patient meet any 2 criteria? Temp <36.0*C (96.8*F)) or > 38.3*C (100.9*F). Does the patient have a suspected source of infection? No. Patient's initial sepsis screen is negative. Risk Assessment: Do you want to hurt yourself or someone else? Patient reports no desire to harm self or others. Onset of symptoms was August 17, 2024. 16:38 Method Of Arrival: Wheelchair iw 16:38 Acuity: BRIANA 3 iw Historical: - Allergies: 16:40 PENICILLINS; iw - PMHx: 16:40 Hypertensive disorder; Hypercholesterolemia; iw - PSHx: 16:40 None; iw - Immunization history:: Adult Immunizations not up to date. - Infectious Disease History:: Denies. - Social history:: Smoking status: Patient reports the use of cigarette tobacco products, denies chronic smoking, but will smoke occasionally. Screenin:42 [facility] ED Fall Risk Assessment (Adult) History of falling in the last 3 months, jj7 including since admission No falls in past 3 months (0 pts) Confusion or Disorientation No (0 pts) Intoxicated or Sedated No (0 pts) Impaired Gait No (0 pts) Mobility Assist Device Used No (0 pt) Altered Elimination No (0 pt) Score/Fall Risk Level 0 - 2 = Low Risk Oriented to surroundings, Maintained a safe environment, Assessed \T\ reinforced patient's understanding of fall precautions. Abuse screen: Denies threats or abuse. Nutritional screening: No deficits noted. Tuberculosis screening: No symptoms or risk factors identified. Assessment: 17:00 General: Appears in no apparent distress. uncomfortable. Pain: Denies pain. Neuro: jb4 Level of Consciousness is awake, alert, obeys commands, Oriented to person, place, time, situation. Cardiovascular: Patient's skin is warm and dry. Respiratory: Reports cough that is productive, persistent Airway is patent Respiratory effort is even, labored, Respiratory pattern is regular, symmetrical, Breath sounds with wheezes. GI: No signs and/or symptoms were reported involving the gastrointestinal system. : No signs and/or symptoms were reported regarding the genitourinary system. EENT: Throat is clear with gag reflex present. Derm: Skin is intact, Skin is pink, warm \T\ dry. 18:28 Reassessment: Patient appears in no apparent distress at this time. Patient and/or jb4 family updated on plan of care and expected duration. Pain level reassessed. Patient is alert, oriented x 3, equal unlabored respirations, skin warm/dry/pink. Patient states feeling better. 19:15 Reassessment: ASSUMED CARE OF PT. PT SITTING IN BED. PT STATES SHE FEELS MUCH BETTER jj7 AND IS READY TO GO HOME. PT ESCORTED TO BATHROOM IN TO GIVE URINE SAMPLE. PT TOLERATED WELL. VS STABLE. CALL MAGAÑA IN REACH. FAMILY AT BEDSIDE NO NEEDS AT THIS TIME. 20:39 Reassessment: Patient is alert, oriented x 3, equal unlabored respirations, skin jj7 warm/dry/pink. Vital Signs: 16:38 BP 125 / 84; Pulse 92; Resp 19; Temp 101.2; Pulse Ox 94% ; iw 18:28 BP 121 / 61; Pulse 90; Resp 24; Temp 101.4(O); Pulse Ox 97% on R/A; jb4 18:52 BP 115 / 62; Pulse 88; Resp 22; Temp 100.6(O); Pulse Ox 95% on R/A; jb4 19:34 BP 108 / 68; Pulse 89; Resp 16; Pulse Ox 96% ; jj7 20:41 BP 121 / 64; Pulse 86; Resp 17; Temp 98.3; Pulse Ox 96% ; Pain 0/10; jj7 20:41 Pain Scale: Adult jj7 ED Course: 16:26 Patient arrived in ED. as 16:29 [facility] Johan[facility] cp 16:29 Fredi English MD is Attending Physician. cp 16:29 Ashwini Mg is Private Physician. as 16:39 Triage completed. iw 16:40 Arm band placed on. iw 17:02 COVID swab sent to lab. Flu and/or RSV swab sent to lab. Strep swab sent to lab. tm3 17:03 RSV Sent. ko1 17:03 Strep Sent. ko1 17:03 SARS RAPID Sent. ko1 17:03 Influenza Screen (a \T\ B) Sent. ko1 17:37 XRAY Chest (1 view) In Process Unspecified. EDMS 17:41 EKG done, by ED staff. tm3 19:21 Apollo Hassan, SHALOM is Primary Nurse. jj7 19:42 Urine collected: clean catch specimen, clear. sa1 20:42 No provider procedures requiring assistance completed. IV discontinued, intact, jj7 bleeding controlled, No redness/swelling at site. Pressure dressing applied. 20:43 Provided Education on: MEDS. jj7 Administered Medications: 17:54 Drug: Acetaminophen PO 1000 mg PO once Route: PO; jb4 18:52 Follow up: Response: No adverse reaction; Marked relief of symptoms; Temperature is jb4 decreased 17:54 Drug: DuoNeb Nebulize (2.5 mg - 0.5 mg) 3 ml Nebulizer once Route: Nebulizer; jb4 18:51 Follow up: Response: No adverse reaction; Marked relief of symptoms; Wheezing diminishedjb4 18:45 Drug: Oseltamivir PO 75 mg PO once Route: PO; jb4 20:41 Follow up: Response: Marked relief of symptoms jj7 19:34 Drug: Ibuprofen PO 800 mg PO once Route: PO; jj7 20:41 Follow up: Response: Marked relief of symptoms jj7 20:35 Drug: Rocephin IV 1 grams IV at calculated rate once; Given slow IV push per pharmacy jj7 instructions Route: IV; Rate: calculated rate; Site: left antecubital; 20:44 Follow up: IV Status: Completed infusion jj7 Medication: 20:43 VIS not applicable for this client. jj7 Outcome: 19:51 Discharge ordered by . cp 20:42 Discharged to home ambulatory, jj7 20:42 Condition: improved 20:42 Discharge instructions given to patient, Instructed on discharge instructions, medication usage, Demonstrated understanding of instructions, medications, Prescriptions given X 4, 20:44 Patient left the ED. jj7 Signatures: Dispatcher [employer] EDMS Eugene Grover tm3 Daija Moctezuma Irene, RN RN iw Johan Mckeon PA PA cp Bryson, James RN RN jb4 Bonnie Shin RN RN [email or web address] Apollo Hassan RN RN jj7 Sultan tara Wood
[2024-08-19 20:14] LABS: Blood Morphology Comment NOT SEEN (NOT SEEN); Platelet Estimate ADEQ; White Blood Cell Scan OK (OK)
[2024-08-19] MEDS ORDERED: CEFTRIAXONE 1000 MG/VIAL ONE (20:37)
[2024-08-19 20:54] VITALS: O2SAT 96
[2024-08-19 20:55] VITALS: BP 121/64; TEMP 98.3
--- NOTE | 2024-08-21 13:40 | EKG ---
Test Date: 2024-08-19 Test Time: 17:36:07 Die Finisher: TM MEASUREMENT RESULTS: Intervals: Rate: 87 UT: 200 QRSD: 80 QT: 356 QTc: 428 Conifer: P: 62 UT: 200 QRS: 38 T: 7 INTERPRETIVE STATEMENTS: Sinus rhythm with occasional premature ventricular complexes Septal infarct, age undetermined Abnormal ECG Compared to ECG 02/25/2022 13:50:29 Ventricular premature complex(es) now present Atrial premature complex(es) no longer present Myocardial infarct finding still present Electronically Signed On 08-21-24 13:36:57 TEAROOM HOSTESS by Tavo Mcfarlane
== END 2024-08-19 20:44 | disposition home or self-care (01) ==
LOC: ER 16:25
DX: J09.X2 Influenza due to identified novel influenza A virus with other respiratory manifestations (principal); N39.0 Urinary tract infection, site not specified; I10 Essential (primary) hypertension; E78.00 Pure hypercholesterolemia, unspecified; F17.210 Nicotine dependence, cigarettes, uncomplicated; Z88.0 Allergy status to penicillin; Z11.52 Encounter for screening for COVID-19
CPT/HCPCS: 93005; 87040 ×2; 87070; 87088; 85025; 81001; 87086; 36415; 85610; 87081; 83605; 85730; 80053; 87807; 87804 ×2; 71045; 96374; 99285; 87811; J7613; J7644; J0696